=== PATIENT | female | born 1930 | race Caucasian/White ===

== ENCOUNTER → 2016-07-01 | Outpatient (CLI) | payer BC ==
[~2016-07-01] MED LIST: ACET-1256 PO; ALEN5TAB2 PO; ATOR-54 PO; CHOL1TAB5 PO; CHOL400T PO; FERR1TAB13 PO; FERR325T51 PO; FLV1 PO; HYDR0.5T PO; HYDR12.56 PO; LEVO25TA5 PO; LEVO88TA3 PO; METO100T44 PO; METO25TA3 PO; MULT-190 PO; MULT-506 PO; SYN88 PO; TYL325X PO; WARF2.5T8 PO; WARF5TAB7 PO
[2016-07-01 12:24] LABS: BASO % 0.2 %; BASO ABS # 0.01 K/uL (0-0.2); COMPLETE YES; EOS % 2.2 %; HEMATOCRIT 35.3 % (37-47); IG% 0.2 %; LYMPH % 14.4 %; LYMPH ABS # 0.84 K/uL (1.2-3.4); MEAN CELL VOLUME 88.5 fL (80-100); MEAN CORPUSCULAR HEMOGLOBIN 28.8 pg (25-34); MEAN CORPUSCULAR HGB CONC 32.6 g/dl (32-36); MEAN PLATELET VOLUME 10.2 fL (7.4-10.4); MONO % 8.6 %; NEUT % 74.4 %; PLATELET COUNT 226 K/uL (130-400); RED BLOOD COUNT 3.99 M/uL (4.2-5.4); WHITE BLOOD COUNT 5.83 K/uL (4.8-10.8)
== END | disposition home or self-care (01) ==
LOC: C.LAB1850 09:21
PROVIDERS: ATTEND Internal Medicine Rheumatology
DX: M85.80 Other specified disorders of bone density and structure, unspecified site (principal); M06.9 Rheumatoid arthritis, unspecified; M32.9 Systemic lupus erythematosus, unspecified; E55.9 Vitamin D deficiency, unspecified; Z79.899 Other long term (current) drug therapy; Z51.81 Encounter for therapeutic drug level monitoring; Z79.01 Long term (current) use of anticoagulants; I87.1 Compression of vein

== ENCOUNTER 2016-11-11 09:44 | Emergency (ER) | payer BC ==
[~2016-11-11] VITALS: Ht 160 cm; Wt 60.0 kg
[~2016-11-11 09:44] MED LIST changes: -CHOL400T PO; -FERR1TAB13 PO; -LEVO25TA5 PO; -LEVO88TA3 PO; -METO100T44 PO; -TYL325X PO
[2016-11-11 09:46] VITALS: TEMP 36.6; Ht 160 cm; Wt 60.0 kg
--- NOTE | 2016-11-11 10:15 | EMERGENCY ROOM VISIT NOTE ---
History Report prepared by Alanna: Fatou Salgado Under the Supervision of: Dr. Rodney Fischer M.D. First contact with patient: 10:04 Chief Complaint: FALL Stated Complaint: GROIN PROBLEM,CANT BEAR WEIGHT ON L KNEE History of Present Illness The patient is a 86 year old female who presents to the Emergency Room with complaints of a fall that occurred 3 days again. The patient reports that she has not been able to walk since and that she hit her head. She states that she is on Coumadin because she has a pacemaker.The patient also has a history of a hip replacement 2 years ago. Source of History: patient Onset: 3 days ago Position: other (global) Quality: other (fall) Timing: resolved Note: additional symptoms: unable to walk; hit head during fall Review of Systems See HPI for pertinent positives & negatives. A total of 10 systems reviewed and were otherwise negative. Past Medical & Surgical Medical Problems: (1) Dementia (2) Displaced intertrochanteric fracture of left femur (3) H/O cataract removal with insertion of prosthetic lens (4) Lupus (5) Myocardial infarct Family History FH: colon cancer FH: glaucoma FH: prostate cancer FH: renal failure Social History Smoking Status: Never Smoker Alcohol Use: occasionally Marital Status: Occupation Status: employed Current/Historical Medications Scheduled Alendronate Sodium (Fosamax), 70 MG PO WK Atorvastatin (Lipitor), 20 MG PO DAILY Cholecalciferol (Vitamin D), 5,000 UNITS PO DAILY Ferrous Sulfate (Kp Ferrous Sulfate), 1 TAB PO DAILY Hydrochlorothiazide (Hctz), 12.5 MG PO DAILY Levothyroxine Sodium (Levothyroxine Sodium), 1 TAB PO DAILY Metoprolol Succinate (Toprol Xl), 25 MG PO DAILY Multivitamin (Multivitamin), 1 TAB PO DAILY Ocuvite Preservision (Ocuvite Preservision), 1 TAB PO BID Warfarin Sod (Jantoven), 5 MG PO [id number] Warfarin Sod (Jantoven), 2.5 MG PO WK Scheduled PRN Acetaminophen (Tylenol), 500 MG PO Q4 PRN for Headache or Pain Allergies Coded Allergies: Terbinafine (Verified Allergy, Unknown, 03/23/15) Physical Exam Vital Signs Date Time Temp Pulse Resp B/P (MAP) Pulse Ox O2 Delivery O2 Flow Rate FiO2 8/16/17 16:42 75 18 155/85 96 11/11/16 14:15 74 16 148/74 11/11/16 13:30 76 16 95 Room Air 11/11/16 12:35 72 11/11/16 12:13 73 16 170/106 97 Room Air 11/11/16 09:46 36.6 75 16 125/78 98 Room Air Physical Exam GENERAL: Patient is a healthy-appearing well-nourished female. Confused. HEAD: Normocephalic atraumatic EYES: Ocular movements intact pupils equal and react to light OROPHARYNX mucous membranes are moist no exudates present no erythema or edema present NECK: Supple no nuchal rigidity CHEST: Good equal expansion LUNGS: Clear and equal to auscultation CARDIAC: Normal S1 and S2 ABDOMEN: Soft nontender no guarding BACK: No CVA tenderness EXTREMITIES: No pain upon palpation normal muscle strength in all groups no clubbing cyanosis or edema. 4/5 strength on right leg and 4/5 strength on left leg. NEURO: Patient is following commands and answering questions appropriately. Alert and oriented x3 Cranial Nerves 2-12 grossly intact Medical Decision & Procedures ER Provider Diagnostic Interpretation: X-ray results as stated below per interpretation by me and the radiologist: PELVIS 1 OR 2 VIEW ROUTINE CLINICAL HISTORY: 86 years-old Female presenting with fall on Wednesday, left hip pain. TECHNIQUE: Single frontal view of the pelvis was obtained. COMPARISON: 03/23/2015. FINDINGS: Postsurgical changes of dynamic screw and intramedullary bharti fixation of the left femoral neck and proximal metadiaphysis across the comminuted, displaced proximal left femoral intertrochanteric/subtrochanteric fracture. Extensive thick periosteal reaction consistent with healing. No gross evidence of a persistent fracture plane. No hardware complication. Acute nondisplaced fracture of the left superior pubic ramus and likely inferior left pubic ramus better visualized on plain radiographs of the left hip. Arcuate lines intact. No additional pelvic fracture is evident. No malalignment. Added density in the region of the right superior and inferior pubic rami may relate to chronic deformity from prior fracture. Degenerative changes of the lower lumbar spine. Pelvic phleboliths. Moderate stool burden in the colon. IMPRESSION: 1. Acute nondisplaced fracture of the left superior pubic ramus and likely left inferior pubic ramus. No additional pelvic fracture is evident. 2. Chronic deformities from prior fractures of the left femur and likely right superior and inferior pubic rami. Electronically signed by: Eleazar Vela M.D. 11/11/2016 11:01 AM Dictated Date/Time: 11/11/2016 10:56 AM LEFT FEMUR 3 VIEWS CLINICAL HISTORY: Left leg pain. Fall several days ago. FINDINGS: AP, frog-leg, and crosstable lateral views of left femur are compared to study dated 03/23/2015. The skeletal structures are osteopenic. There is an acute-appearing fracture of the left pubic ring. No acute femoral fracture is seen. There is chronic posttraumatic deformity of the intertrochanteric left femur with intertrochanteric and intramedullary nails in place. Bony overgrowth is identified around the chronically avulsed lesser trochanter. The orthopedic hardware appears intact. A single cortical lag screw transfixes the distal aspect of the intramedullary nail. Mild arthritic change is seen in the hip. Arthritic change and chondrocalcinosis is present in the knee. The soft tissues of the thigh are normal as visualized. Foci of atherosclerotic calcification are present in the femoral and popliteal arteries. Phleboliths are observed in the left pelvis. IMPRESSION: 1. There is an acute appearing left pubic ring fracture. 2. No acute fracture is seen involving the left femur. 3. Osteopenia with chronic post traumatic, postoperative, and degenerative changes as above. Electronically signed by: Perico Rooney M.D. 11/11/2016 10:56 AM Dictated Date/Time: 11/11/2016 10:52 AM CHEST ONE VIEW PORTABLE CLINICAL HISTORY: Cough. Back pain. COMPARISON STUDY: 03/26/2016 FINDINGS: The heart remains mildly enlarged. There is a left subclavian dual-chamber central venous pacemaker. Mild pulmonary venous hypertension is suspected. There is no overt edema. There is no focal pulmonary consolidation. There are no pleural effusions.[ IMPRESSION: Cardiomegaly with suspected mild pulmonary venous hypertension. No evidence of focal pulmonary consolidation. Electronically signed by: Justen Monreal M.D. 11/11/2016 10:52 AM Dictated Date/Time: 11/11/2016 10:51 AM Radiology results as stated below per my review and radiologist interpretation: CT SCAN OF THE BRAIN WITHOUT IV CONTRAST CLINICAL HISTORY: Headache. COMPARISON STUDY: CT of the brain dated 03/23/2015. TECHNIQUE: Unenhanced axial CT scan of the brain is performed from the vertex to the skull base. CT DOSE: 537.48 mGy.cm FINDINGS: Brain parenchyma: There are age-related involutional changes noting [id number] patchy subcortical and periventricular microangiopathic change. There is no hemorrhage, mass effect, or evidence of acute territorial ischemia by CT criteria. Spencer-white matter is preserved. No extra-axial fluid collection is seen. Ventricles, sulci, cisterns: Prominent secondary to involutional change. Intracranial vasculature: There is atherosclerotic calcification of the cavernous carotid arteries. Calvarium: Unremarkable. Sinuses and mastoids: The visualized paranasal sinuses are clear. The mastoid air cells are well pneumatized. Orbits: The bony orbits are grossly intact. IMPRESSION: There is no hemorrhage, mass effect, or evidence of acute territorial ischemia by CT criteria. Electronically signed by: Perico Rooney M.D. 11/11/2016 11:49 AM Dictated Date/Time: 11/11/2016 11:[address] PELVIS NO IV/ORAL CONT (CT) CT DOSE: 462.67 mGy.cm CLINICAL HISTORY: Pelvic pain status post trauma. Difficulty walking. TECHNIQUE: Helical images were acquired in transverse plane. Sagittal and coronal reformatted imaging was performed. A dose lowering technique was utilized adhering to the principles of ALARA. COMPARISON STUDY: February 2015 FINDINGS: There is an old internally fixated intertrochanteric left hip fracture. There is acute nondisplaced fracture the left inferior pubic ramus. There is associated nondisplaced fracture through the left symphysis. There is a healing right ischio pubic ring fracture. There are healing bilateral sacral insufficiency fractures. No acute fractures the right hip are visualized. Degenerative changes are present within the lower lumbar spine. IMPRESSION: 1. Acute left ischio pubic ring fracture 2. Old healing right ischio pubic ring fracture 3. Healing bilateral sacral insufficiency fractures 4. Old internally fixated intertrochanteric left hip fracture Electronically signed by: Justen Monreal M.D. 11/11/2016 11:50 AM Dictated Date/Time: 11/11/2016 11:45 AM Laboratory Results 11/11/16 11:15 Red Blood Count 4.05, Mean Corpuscular Volume 88.6, Mean Corpuscular Hemoglobin 28.9, Mean Corpuscular Hemoglobin Concent 32.6, Mean Platelet Volume 9.7, Neutrophils (%) (Auto) 72.1, Lymphocytes (%) (Auto) 12.1, Monocytes (%) (Auto) 12.5, Eosinophils (%) (Auto) 2.7, Basophils (%) (Auto) 0.3, Neutrophils # (Auto ) 5.55, Lymphocytes # (Auto) 0.93, Monocytes # (Auto) 0.96, Eosinophils # (Auto ) 0.21, Basophils # (Auto) 0.02 11/11/16 11:15 Test 11/11/16 11:10 11/11/16 11:15 Urine Color YELLOW Urine Appearance CLEAR (CLEAR) Urine pH 7.5 (4.5-7.5) Urine Specific [place] 1.013 (1.000-1.030) Urine Protein NEG (NEG) Urine Glucose (UA) NEG (NEG) Urine Ketones NEG (NEG) Urine Occult Blood NEG (NEG) Urine Nitrite NEG (NEG) Urine Bilirubin NEG (NEG) Urine Urobilinogen NEG (NEG) Urine Leukocyte Esterase NEG (NEG) White Blood Count 7.69 K/uL (4.8-10.8) Red Blood Count 4.05 M/uL (4.2-5.4) Hemoglobin 11.7 g/dL (12.0-16.0) Hematocrit 35.9 % (37-47) Mean Corpuscular Volume 88.6 fL (80-100) Mean Corpuscular Hemoglobin 28.9 pg (25-34) Mean Corpuscular Hemoglobin Concent 32.6 g/dl (32-36) Platelet Count 195 K/uL (130-400) Mean Platelet Volume 9.7 fL (7.4-10.4) Neutrophils (%) (Auto) 72.1 % Lymphocytes (%) (Auto) 12.1 % Monocytes (%) (Auto) 12.5 % Eosinophils (%) (Auto) 2.7 % Basophils (%) (Auto) 0.3 % Neutrophils # (Auto) 5.55 K/uL (1.4-6.5) Lymphocytes # (Auto) 0.93 K/uL (1.2-3.4) Monocytes # (Auto) 0.96 K/uL (0.11-0.59) Eosinophils # (Auto) 0.21 K/uL (0-0.5) Basophils # (Auto) 0.02 K/uL (0-0.2) RDW Standard Deviation 41.7 fL (36.4-46.3) RDW Coefficient of Variation 12.9 % (11.5-14.5) Immature Granulocyte % (Auto) 0.3 % Immature Granulocyte # (Auto) 0.02 K/uL (0.00-0.02) Prothrombin Time 23.6 SECONDS (9.0-12.0) Prothromb Time International Ratio 2.1 (0.9-1.1) Activated Partial Thromboplast Time 42.3 SECONDS (21.0-31.0) Partial Thromboplastin Ratio 1.6 Anion Gap 4.0 mmol/L (3-11) Est Creatinine Clear Calc Drug Dose 23.0 ml/min Estimated GFR () 38.8 Estimated GFR (Non- 33.5 BUN/Creatinine Ratio 19.2 (10-20) Calcium Level 8.6 mg/dl (8.5-10.1) Total Creatine Kinase 95 U/L (26-192) Creatine Kinase MB 1.1 ng/ml (0.5-3.6) Creatine Kinase MB Ratio 1.2 (0-3.0) Troponin I 0.023 ng/ml (0-0.045) Labs reviewed by ED physician. ECG Indication: weakness Rate (beats per minute): 69 Rhythm: other (paced rhythm) Findings: no acute ischemic change, no ectopy ED Course 1010: Past medical records reviewed. The patient was evaluated in room B3. A complete history and physical examination was performed. 1423: Dr. Longoria instructed the patient as follows: weight-bearing as tolerated , use walker. Medical Decision Differential diagnosis: Etiologies such as fracture, dislocation, intra-abdominal, pneumothorax, intrathoracic , intracranial, neurologic, as well as other traumatic pathologies were entertained. This is an 86-year-old female who presents emergency department complaining of being unable to walk since a fall at home. The patient hit her head and is on Coumadin and seems pleasantly confused with a GCS of 14. For this reason the patient was sent for CAT scan of the head which did not show any acute process. The patient has a history of hip replacement. She was sent for pelvic x-rays as well as femur x-ray. Because the patient is on Coumadin and she appears to have an issue pubic fracture she was sent for CAT scan of the pelvis. This confirmed issue pubic fracture. I did discuss the case with orthopedics who recommended weightbearing as tolerated as well as a walker. Because they feel that this patient is a poor candidate to go home and I also feel she is a high fall risk I recommended that she be placed in a rehabilitation Hospital. was also in agreement with this. I did discuss this with case management and the patient had physical therapy as well as occupational therapy evaluations in the emergency department. Medication Reconcilliation Current Medication List: was personally reviewed by me Blood Pressure Screening Patient's blood pressure: Normal blood pressure Consults Time Called: 1410 Consulting Physician: Dr. Longoria-Orthopedics Returned Call: [phone] I discussed the patient's case with Dr. Longoria, he recommends the following: weight-bearing as tolerated, use walker. Impression Primary Impression: Fall Additional Impression: Pelvic fracture Scribe Attestation The scribe's documentation has been prepared under my direction and personally reviewed by me in its entirety. I confirm that the note above accurately reflects all work, treatment, procedures, and medical decision making performed by me. Departure Information Dispostion Rehab Inpatient Facility Referrals Derick Cervantes M.D. (PCP) Patient Instructions My [facility] Problem Qualifiers Primary Impression: Fall Encounter type: initial encounter Qualified Codes: W19.XXXA - Unspecified fall, initial encounter Additional Impression: Pelvic fracture Encounter type: initial encounter Pelvic bone location: ischium Fracture type: closed Fracture morphology: unspecified fracture morphology Fracture alignment: nondisplaced Laterality: left Qualified Codes: S32.602A - Unspecified fracture of left ischium, initial encounter for closed fracture
--- NOTE | 2016-11-11 10:53 | DIAGNOSTIC IMAGING REPORT ---
CHEST ONE VIEW PORTABLE CLINICAL HISTORY: Cough. Back pain. COMPARISON STUDY: 03/26/2016 FINDINGS: The heart remains mildly enlarged. There is a left subclavian dual-chamber central venous pacemaker. Mild pulmonary venous hypertension is suspected. There is no overt edema. There is no focal pulmonary consolidation. There are no pleural effusions.[ IMPRESSION: Cardiomegaly with suspected mild pulmonary venous hypertension. No evidence of focal pulmonary consolidation. Electronically signed by: Justen Monreal M.D. 11/11/2016 10:52 AM Dictated Date/Time: 11/11/2016 10:51 AM
--- NOTE | 2016-11-11 10:57 | DIAGNOSTIC IMAGING REPORT ---
LEFT FEMUR 3 VIEWS CLINICAL HISTORY: Left leg pain. Fall several days ago. FINDINGS: AP, frog-leg, and crosstable lateral views of left femur are compared to study dated 03/23/2015. The skeletal structures are osteopenic. There is an acute-appearing fracture of the left pubic ring. No acute femoral fracture is seen. There is chronic posttraumatic deformity of the intertrochanteric left femur with intertrochanteric and intramedullary nails in place. Bony overgrowth is identified around the chronically avulsed lesser trochanter. The orthopedic hardware appears intact. A single cortical lag screw transfixes the distal aspect of the intramedullary nail. Mild arthritic change is seen in the hip. Arthritic change and chondrocalcinosis is present in the knee. The soft tissues of the thigh are normal as visualized. Foci of atherosclerotic calcification are present in the femoral and popliteal arteries. Phleboliths are observed in the left pelvis. IMPRESSION: 1. There is an acute appearing left pubic ring fracture. 2. No acute fracture is seen involving the left femur. 3. Osteopenia with chronic post traumatic, postoperative, and degenerative changes as above. Electronically signed by: Perico Rooney M.D. 11/11/2016 10:56 AM Dictated Date/Time: 11/11/2016 10:52 AM
[2016-11-11] MEDS ORDERED: CHOL400T PO (11:00)
[2016-11-11] MEDS ORDERED: LEVO25TA5 PO (11:00)
[2016-11-11] MEDS ORDERED: FERR1TAB13 PO (11:00)
--- NOTE | 2016-11-11 11:03 | DIAGNOSTIC IMAGING REPORT ---
PELVIS 1 OR 2 VIEW ROUTINE CLINICAL HISTORY: 86 years-old Female presenting with fall on Wednesday, left hip pain. TECHNIQUE: Single frontal view of the pelvis was obtained. COMPARISON: 03/23/2015. FINDINGS: Postsurgical changes of dynamic screw and intramedullary bharti fixation of the left femoral neck and proximal metadiaphysis across the comminuted, displaced proximal left femoral intertrochanteric/subtrochanteric fracture. Extensive thick periosteal reaction consistent with healing. No gross evidence of a persistent fracture plane. No hardware complication. Acute nondisplaced fracture of the left superior pubic ramus and likely inferior left pubic ramus better visualized on plain radiographs of the left hip. Arcuate lines intact. No additional pelvic fracture is evident. No malalignment. Added density in the region of the right superior and inferior pubic rami may relate to chronic deformity from prior fracture. Degenerative changes of the lower lumbar spine. Pelvic phleboliths. Moderate stool burden in the colon. IMPRESSION: 1. Acute nondisplaced fracture of the left superior pubic ramus and likely left inferior pubic ramus. No additional pelvic fracture is evident. 2. Chronic deformities from prior fractures of the left femur and likely right superior and inferior pubic rami. Electronically signed by: Eleazar Vela M.D. 11/11/2016 11:01 AM Dictated Date/Time: 11/11/2016 10:56 AM
[2016-11-11 11:28] LABS: BASO % 0.3 %; BASO ABS # 0.02 K/uL (0-0.2); COMPLETE YES; EOS % 2.7 %; HEMATOCRIT 35.9 % (37-47); IG% 0.3 %; LYMPH % 12.1 %; LYMPH ABS # 0.93 K/uL (1.2-3.4); MEAN CELL VOLUME 88.6 fL (80-100); MEAN CORPUSCULAR HEMOGLOBIN 28.9 pg (25-34); MEAN CORPUSCULAR HGB CONC 32.6 g/dl (32-36); MEAN PLATELET VOLUME 9.7 fL (7.4-10.4); MONO % 12.5 %; NEUT % 72.1 %; PLATELET COUNT 195 K/uL (130-400); RED BLOOD COUNT 4.05 M/uL (4.2-5.4); WHITE BLOOD COUNT 7.69 K/uL (4.8-10.8)
[2016-11-11 11:38] LABS: INR 2.1 (0.9-1.1); PARTIAL THROMBOPLASTIN RATIO 1.6; PROTHROMBIN TIME (PATIENT) 23.6 SECONDS (9.0-12.0)
[2016-11-11 11:43] LABS: URINE APPEARANCE CLEAR (CLEAR); URINE BILIRUBIN NEG (NEG); URINE COLOR YELLOW; URINE NITRITE NEG (NEG); URINE PH 7.5 (4.5-7.5); URINE SPECIFIC GRAVITY 1.013 (1.000-1.030); UROBILINOGEN NEG (NEG); ZZURINE CULT IF INDIC CATH NO
[2016-11-11 11:45] LABS: BUN/CREATININE RATIO 19.2 (10-20); CALCIUM 8.6 mg/dl (8.5-10.1); CREATININE 1.4 mg/dl (0.60-1.20)
[2016-11-11 11:46] LABS: MANUAL MICROSCOPIC REQUIRED? NO; REVIEW REQ? NO
[2016-11-11 11:50] LABS: CKMB/CK RATIO 1.2 (0-3.0)
--- NOTE | 2016-11-11 11:50 | DIAGNOSTIC IMAGING REPORT ---
CT SCAN OF THE BRAIN WITHOUT IV CONTRAST CLINICAL HISTORY: Headache. COMPARISON STUDY: CT of the brain dated 03/23/2015. TECHNIQUE: Unenhanced axial CT scan of the brain is performed from the vertex to the skull base. CT DOSE: 537.48 mGy.cm FINDINGS: Brain parenchyma: There are age-related involutional changes noting [id number] patchy subcortical and periventricular microangiopathic change. There is no hemorrhage, mass effect, or evidence of acute territorial ischemia by CT criteria. Spencer-white matter is preserved. No extra-axial fluid collection is seen. Ventricles, sulci, cisterns: Prominent secondary to involutional change. Intracranial vasculature: There is atherosclerotic calcification of the cavernous carotid arteries. Calvarium: Unremarkable. Sinuses and mastoids: The visualized paranasal sinuses are clear. The mastoid air cells are well pneumatized. Orbits: The bony orbits are grossly intact. IMPRESSION: There is no hemorrhage, mass effect, or evidence of acute territorial ischemia by CT criteria. Electronically signed by: Perico Rooney M.D. 11/11/2016 11:49 AM Dictated Date/Time: 11/11/2016 11:45 AM
--- NOTE | 2016-11-11 11:52 | DIAGNOSTIC IMAGING REPORT ---
CT PELVIS NO IV/ORAL CONT (CT) CT DOSE: 462.67 mGy.cm CLINICAL HISTORY: Pelvic pain status post trauma. Difficulty walking. TECHNIQUE: Helical images were acquired in transverse plane. Sagittal and coronal reformatted imaging was performed. A dose lowering technique was utilized adhering to the principles of ALARA. COMPARISON STUDY: February 2015 FINDINGS: There is an old internally fixated intertrochanteric left hip fracture. There is acute nondisplaced fracture the left inferior pubic ramus. There is associated nondisplaced fracture through the left symphysis. There is a healing right ischio pubic ring fracture. There are healing bilateral sacral insufficiency fractures. No acute fractures the right hip are visualized. Degenerative changes are present within the lower lumbar spine. IMPRESSION: 1. Acute left ischio pubic ring fracture 2. Old healing right ischio pubic ring fracture 3. Healing bilateral sacral insufficiency fractures 4. Old internally fixated intertrochanteric left hip fracture Electronically signed by: Justen Monreal M.D. 11/11/2016 11:50 AM Dictated Date/Time: 11/11/2016 11:45 AM
--- NOTE | 2016-11-11 15:29 | ORTHOPEDIC CONSULTATION ---
DATE OF CONSULTATION: 11/11/2016 DATE OF CONSULTATION: 11/11/2016 HISTORY OF PRESENT ILLNESS: This 86-year-old female who sustained a fall at home on Wednesday and had difficulty ambulating since that time. She was seen in the Coumadin clinic today. She is on Coumadin due to her cardiac dysrhythmia and complained of groin and pelvis pain, she complained of an inability to ambulate without significant pain and difficulty and she was referred to the ER. The ER physician examined the patient and performed radiographs and CT scans and discovered a left pubic ring fracture and requested a consultation for orthopedics. PAST MEDICAL HISTORY: Significant for dementia, ORIF intertrochanteric fracture of the left femur, history of cataract removal with insertion of prosthetic lens, lupus, myocardial infarct and previous pacemaker insertion. ALLERGIES: TERBINAFINE UNKNOWN ALLERGY. MEDICATIONS: Please see the medication list provided including warfarin sodium 5 mg p.o. 6 times per week and warfarin sodium 2.5 mg p.o. weekly. SOCIAL HISTORY: Denies tobacco, alcohol or drug use. She is . She is retired. PHYSICAL EXAMINATION: GENERAL: This is a pleasant 86-year-old female, sitting supine in the Emergency Department bed. She is present with her , who is at her bedside. The patient is awake, alert and oriented x3. Speech clear and fluent. Affect is appropriate. Answers questions appropriately. EXTREMITIES: Examination of the pelvis and left anterior pubis demonstrates tenderness to palpation over the left anterior pubic symphysis and the left groin. She has discomfort with active and passive range of motion of the left lower extremity radiating from the left pubis. Unable to stand or ambulate due to discomfort. Dorsalis pedis and posterior tibial pulses are 2/4. Strength and range of motion limited due to pain and guarding. Radiographs and CT scans were examined and reviewed, both report and images noting a closed left symphysis pubis fracture and a left inferior pubic ramus fracture, both acute. Also, evidence of prior ORIF intertrochanteric hip fracture and varying degrees of degenerative arthritis throughout the sacrum and pelvis with evidence of prior healed fractures within the pelvis. Osteopenia is evident. IMPRESSIONS: 1. Left symphysis pubis fracture. 2. Left inferior pubic ramus fracture status post mechanical fall. RECOMMENDATIONS: Weightbearing as tolerated with a walker and assist x1 and follow up in our office for radiographic surveillance in approximately 5-6 weeks. Thank you for the opportunity to consult in the care of this patient. MILAGROS
--- NOTE | 2016-11-11 16:27 | EMERGENCY ROOM VISIT NOTE ---
ED Visit Note This patient was signed out to me awaiting for [facility] to prove or disprove the patient's admission there. While the patient was here, the was becoming upset that it was taking so long. He states that he would like to take his home and he can be contacted by [facility] at home. He feels comfortable taking her home. He states that he has been taking care of her for the past several days in her current condition. He wants to be discharged at this time with his . He understands that if [facility] cannot accept her, he will have to arrange for other means to get her rehabilitation.
[2016-11-11 16:42] VITALS: BP 155/85; PULSE 75; O2SAT 96
== END 2016-11-11 16:44 | disposition home or self-care (01) ==
LOC: C.EDB 09:45
DX: S32.602A Unspecified fracture of left ischium, initial encounter for closed fracture (principal); W19.XXXA Unspecified fall, initial encounter; M85.80 Other specified disorders of bone density and structure, unspecified site; R51 Headache; R05 Cough; M54.9 Dorsalgia, unspecified; I51.7 Cardiomegaly; F03.90 Unspecified dementia, unspecified severity, without behavioral disturbance, psychotic disturbance, mood disturbance, and anxiety; I25.2 Old myocardial infarction; M32.9 Systemic lupus erythematosus, unspecified; Z87.81 Personal history of (healed) traumatic fracture; Z95.0 Presence of cardiac pacemaker; Z96.642 Presence of left artificial hip joint; Z98.49 Cataract extraction status, unspecified eye; Z79.01 Long term (current) use of anticoagulants; Z79.899 Other long term (current) drug therapy; Z88.8 Allergy status to other drugs, medicaments and biological substances; Z80.0 Family history of malignant neoplasm of digestive organs; Z84.1 Family history of disorders of kidney and ureter; Z80.42 Family history of malignant neoplasm of prostate; Z83.511 Family history of glaucoma; Z51.81 Encounter for therapeutic drug level monitoring; I87.1 Compression of vein

== ENCOUNTER → 2016-12-07 | Outpatient (CLI) | payer BC ==
[~2016-12-07] MED LIST changes: -CHOL1TAB5 PO; +CHOL400T PO; +FERR1TAB13 PO; -FERR325T51 PO; -FLV1 PO; -HYDR0.5T PO; +LEVO25TA5 PO; -SYN88 PO
[2016-12-07 10:46] LABS: BASO % 0.3 %; BASO ABS # 0.02 K/uL (0-0.2); COMPLETE YES; EOS % 2.3 %; HEMATOCRIT 36.1 % (37-47); IG% 0.1 %; LYMPH ABS # 0.77 K/uL (1.2-3.4); MEAN CELL VOLUME 89.4 fL (80-100); MEAN CORPUSCULAR HEMOGLOBIN 28.5 pg (25-34); MEAN CORPUSCULAR HGB CONC 31.9 g/dl (32-36); MEAN PLATELET VOLUME 9.9 fL (7.4-10.4); MONO % 10.8 %; NEUT % 75.5 %; PLATELET COUNT 259 K/uL (130-400); RED BLOOD COUNT 4.04 M/uL (4.2-5.4); WHITE BLOOD COUNT 7.02 K/uL (4.8-10.8)
== END | disposition home or self-care (01) ==
LOC: C.LAB1850 08:56
PROVIDERS: ATTEND Internal Medicine Rheumatology
DX: M06.9 Rheumatoid arthritis, unspecified (principal); M32.9 Systemic lupus erythematosus, unspecified; Z51.81 Encounter for therapeutic drug level monitoring; Z79.899 Other long term (current) drug therapy; E55.9 Vitamin D deficiency, unspecified; N25.81 Secondary hyperparathyroidism of renal origin; M35.1 Other overlap syndromes; M81.0 Age-related osteoporosis without current pathological fracture; Z12.31 Encounter for screening mammogram for malignant neoplasm of breast

== ENCOUNTER → 2016-12-07 | Outpatient (CLI) | payer BC ==
--- NOTE | 2016-12-07 15:51 | MAMMOGRAPHY REPORT ---
BILATERAL DIGITAL SCREENING MAMMOGRAM WITH CAD: 12/07/2016 CLINICAL HISTORY: Routine screening. Patient has no complaints. TECHNIQUE: Bilateral CC, MLO and repeat right CC views were performed. Current study was also evalua zack with a Computer Aided Detection (CAD) system. COMPARISON: Comparison is made to exams dated: 11/14/2014 mammogram, 05/25/2014 mammogram, 11/21/2013 m ammogram, 11/13/2013 mammogram, 11/10/2012 mammogram, and 11/10/2011 mammogram - [facility] enter. BREAST COMPOSITION: There are scattered areas of fibroglandular density in both breasts. FINDINGS: A pacemaker projects over the far superior left breast and pectoralis muscle on the MLO vie w. There is stable focal asymmetry in the upper outer posterior right breast, which appears similar dating back to at least 10/20/2007, therefore likely benign. There are scattered benign round calcif ications in both breasts. No suspicious mass, architectural distortion or cluster of microcalcificati ons is seen. IMPRESSION: ACR BI-RADS CATEGORY 1: NEGATIVE There is no mammographic evidence of malignancy. A 1 year screening mammogram is recommended. The pa tient will receive written notification of the results. Approximately 10% of breast cancers are not detected with mammography. A negative mammographic report should not delay biopsy if a clinically suggestive mass is present. Namrata Blue M.D. ay/:12/07/2016 15:10:41 Primer Charging Tool Setter: Letitia RAHMAN(Zulma)(Carlos)(BD), [facility] letter sent: Normal 1/2 BI-RADS Code: ACR BI-RADS Category 1: Negative
== END | disposition home or self-care (01) ==
LOC: C.MAMM 08:25
PROVIDERS: ATTEND Family Medicine
DX: Z12.31 Encounter for screening mammogram for malignant neoplasm of breast (principal)

== ENCOUNTER → 2017-01-14 | Outpatient (CLI) | payer BC | END | disposition home or self-care (01) | LOC: C.MAMM 09:40 | PROVIDERS: ATTEND Internal Medicine Rheumatology | DX: M80.00XA Age-related osteoporosis with current pathological fracture, unspecified site, initial encounter for fracture (principal); M85.832 Other specified disorders of bone density and structure, left forearm ==

== ENCOUNTER → 2017-03-11 | Outpatient (CLI) | payer BC ==
[~2017-03-11] MED LIST changes: -LEVO25TA5 PO; +LEVO88TA3 PO; +LVQ500 PO
--- NOTE | 2017-03-11 12:51 | DIAGNOSTIC IMAGING REPORT ---
CHEST 2 VIEWS ROUTINE CLINICAL HISTORY: 86 years-old Female presenting with R06.02 SOB R06.2 WHEEZING. TECHNIQUE: PA and lateral views of the chest were obtained. COMPARISON: 11/11/2016. FINDINGS: Left subclavian pacer with leads to the right atrium and right ventricular apex. Atherosclerosis of aortic arch. Cardiac silhouette remains enlarged. Pulmonary vascular prominence. Prominence of the right hilum, possibly vascular. Minimal bandlike opacity at the right lung base, unchanged. Trace bilateral pleural effusions suggested. Deformity of several posterior right ribs indicative of prior fractures. Degenerative changes of the thoracic spine. Deformities of several thoracic vertebral bodies consistent with compression fractures, age indeterminate. Upper abdomen normal. IMPRESSION: 1. Cardiomegaly with pulmonary vascular prominence concerning for volume overload. No katelynn pulmonary edema. 2. Prominence of the right hilum may be vascular in etiology, although underlying lymphadenopathy or a mass lesion is difficult to exclude. If there is clinical concern, CT to be obtained. 3. Age-indeterminate compression fractures of several thoracic vertebral bodies. Electronically signed by: Eleazar Vela M.D. 03/11/2017 12:49 PM Dictated Date/Time: 03/11/2017 12:46 PM
== END | disposition home or self-care (01) ==
LOC: C.RAD1850 12:35
PROVIDERS: ATTEND Family Medicine
DX: R06.02 Shortness of breath (principal); R06.2 Wheezing

== ENCOUNTER 2017-03-12 11:27 | Observation (INO) | payer BC, OTHER ==
[~2017-03-12] VITALS: Ht 165.1 cm; Wt 58.3 kg
[~2017-03-12 11:27] MED LIST changes: -LVQ500 PO
[2017-03-12 13:16] VITALS: BP 132/77; PULSE 84; TEMP 36.7; O2SAT 96; Ht 165.1 cm; Wt 58.3 kg
[2017-03-12] MEDS ORDERED: ONDANSETRON INJ 2 MG/ML 2 ML VIAL IV PRN (13:45)
[2017-03-12] MEDS ORDERED: ACETAMINOPHEN 325 MG TAB PO PRN (13:45)
[2017-03-12] MEDS ORDERED: POLYETHYLENE (MIRALAX) 17 GM PACK PO PRN (13:45)
[2017-03-12] MEDS ORDERED: ALUMINUM/MAGNESIUM/SIMETH (MAALOX MAX) 30 ML UDC PO PRN (13:45)
[2017-03-12] MEDS ORDERED: MAGNESIUM HYDROXIDE SUSP 30 ML UDC PO PRN (13:45)
[2017-03-12] MEDS ORDERED: IV FLUIDS COMPLETED PRN (14:15)
[2017-03-12 14:29] LABS: BASO % 0.1 %; BASO ABS # 0.01 K/uL (0-0.2); COMPLETE YES; EOS % 0.2 %; HEMATOCRIT 32.8 % (37-47); IG% 0.3 %; LYMPH ABS # 0.32 K/uL (1.2-3.4); MEAN CELL VOLUME 89.9 fL (80-100); MEAN CORPUSCULAR HEMOGLOBIN 29.6 pg (25-34); MEAN CORPUSCULAR HGB CONC 32.9 g/dl (32-36); MONO % 6.4 %; PLATELET COUNT 167 K/uL (130-400); RED BLOOD COUNT 3.65 M/uL (4.2-5.4); WHITE BLOOD COUNT 10.68 K/uL (4.8-10.8)
[2017-03-12 14:44] LABS: INR 2.2 (0.9-1.1); PROTHROMBIN TIME (PATIENT) 22.9 SECONDS (9.0-12.0)
[2017-03-12 14:48] VITALS: BP 136/71; PULSE 64; TEMP 37; O2SAT 97
--- NOTE | 2017-03-12 14:49 | DIAGNOSTIC IMAGING REPORT ---
CHEST ONE VIEW PORTABLE CLINICAL HISTORY: ? pneumonia pneumonitis COMPARISON STUDY: 03/11/2017 FINDINGS: Potential developing parenchymal infiltrate left base. Lungs otherwise appear clear. Findings of mild stable cardiomegaly. Right hilar fullness diminished possibly secondary to rotational factors on the initial film. Permanent bipolar cardiac pacemaker. IMPRESSION: Potential developing parenchymal infiltrate left base. Improved right hilar prominence. The above report was generated using voice recognition software. It may contain grammatical, syntax or spelling errors. Electronically signed by: Sheldon Simons M.D. 03/12/2017 2:48 PM Dictated Date/Time: 03/12/2017 2:47 PM
[2017-03-12] MEDS ORDERED: LEVOFLOXACIN 750 MG TAB PO ONE (14:54)
[2017-03-12 14:55] LABS: BUN/CREATININE RATIO 20.3 (10-20); CALCIUM 8.1 mg/dl (8.5-10.1); CREATININE 1.77 mg/dl (0.60-1.20); POTASSIUM 3.3 mmol/L (3.5-5.1)
[2017-03-12 14:57] LABS: ALB/GLOB RATIO 0.8 (0.9-2)
[2017-03-12] MEDS ORDERED: ACETAMINOPHEN 500 MG TAB PO PRN (16:30)
--- NOTE | 2017-03-12 16:30 | ECHOCARDIOGRAM REPORT ---
*NOTICE TO RECEIVING DEMOCRAT AGENCY This information is strictly Confidential and protected under [place] law. [place] law prohibits you from making any further disclosure of this information unless further disclosure is expressly permitted by the written consent of the person to whom it pertains or is authorized by law. A general authorization for the release of medical or other information is not sufficient for this purpose. Hospital accepts no responsibility if the information is made available to any other person, INCLUDING THE PATIENT. Interpretation Summary * Name: TRESA LAO Study Date: 03/12/2017 03:08 PM BP: 136/71 mmHg * Patient Location: [facility]\S\N281\S\2 HR: 64 * : 1930 (M/d/yyy) Gender: Female Height: 65 in * Age: 86 yrs Ethnicity: [place] Weight: 129 lb * Ordering Physician: Jovanny Zaidi * Referring Physician: Derick Kelly * Performed By: Beverly Morales RDCS * * Reason For Study: SOB, CHF * BSA: 1.6 m2 * -- Conclusions -- * Left ventricular systolic function is normal. * No regional wall motion abnormalities noted. * Ejection Fraction = 50-55%. * Grade I diastolic dysfunction, (abnormal relaxation pattern). * There is mild mitral regurgitation. * There is mild to moderate tricuspid regurgitation. Procedure Details * A complete two-dimensional transthoracic echocardiogram was performed (2D, M-mode, Doppler and color flow Doppler). Left Ventricle * The left ventricle is normal in size. * There is normal left ventricular wall thickness. * Ejection Fraction = 50-55%. * Left ventricular systolic function is normal. * No regional wall motion abnormalities noted. Right Ventricle * The right ventricular cavity size is normal (basal dimension <4.2 cm in right ventricular apical 4-chamber view). * There is a pacemaker lead in the right ventricle. * The right ventricular systolic function is normal as assessed by tricuspid annular plane systolic excursion (TAPSE) (normal >1.5 cm). Atria * The left atrium is mildly dilated. * Borderline right atrial enlargement. * No ASD detected; PFO is not assessed. Mitral Valve * The mitral valve is grossly normal. * There is no mitral valve stenosis. * There is mild mitral regurgitation. Tricuspid Valve * The tricuspid valve is not well visualized, but is grossly normal. * There is mild to moderate tricuspid regurgitation. Aortic Valve * The aortic valve is trileaflet. * The aortic valve opens well. * Aortic valve sclerosis mild, without significant aortic valvular stenosis. * Trace aortic regurgitation. Pulmonic Valve * The pulmonary valve is inadequately visualized, but the Doppler data is adequate for interpretation. Great Vessels * The aortic root is normal size. * The pulmonary is not well visualized. Pericardium/Pleural * There is no pericardial effusion. Great Vessels * Normal inferior vena cava size and collapsability with sniff indicates a normal right atrial pressure of 3 mmHg Left Ventricular Diastolic Function * Grade I diastolic dysfunction, (abnormal relaxation pattern). MMode 2D Measurements and Calculations IVSd 0.95 cm LVIDd 5.0 cm LVIDs 3.6 cm LVPWd 1.1 cm IVS/LVPW 0.88 FS 28.3 % EDV(Teich) 120.6 ml ESV(Teich) 55.0 ml EF(Teich) 54.4 % EDV(cubed) 128.2 ml ESV(cubed) 47.3 ml EF(cubed) 63.1 % LV mass(C)d 188.7 grams LV mass(C)dI 114.9 grams/m\S\2 SV(Teich) 65.6 ml SI(Teich) 39.9 ml/m\S\2 SV(cubed) 80.9 ml SI(cubed) 49.3 ml/m\S\2 Ao root diam 2.9 cm Ao root area 6.8 cm\S\2 ACS 1.4 cm LA dimension 3.4 cm asc Aorta Diam 3.0 cm LA/Ao 1.2 LVOT diam 2.0 cm LVOT area 3.1 cm\S\2 LVAd ap4 28.4 cm\S\2 LVLd ap4 7.5 cm EDV(MOD-sp4) 90.0 ml EDV(sp4-el) 91.5 ml LVAs ap4 19.0 cm\S\2 LVLs ap4 6.7 cm ESV(MOD-sp4) 42.9 ml ESV(sp4-el) 46.1 ml EF(MOD-sp4) 52.3 % EF(sp4-el) 49.7 % LVAd ap2 25.8 cm\S\2 LVLd ap2 6.5 cm EDV(MOD-sp2) 85.3 ml EDV(sp2-el) 86.5 ml LVAs ap2 18.2 cm\S\2 LVLs ap2 6.5 cm ESV(MOD-sp2) 41.8 ml ESV(sp2-el) 43.0 ml EF(MOD-sp2) 51.0 % EF(sp2-el) 50.3 % LVLd %diff -14.97 % EDV(MOD-bp) 93.1 ml LVLs %diff -1.98 % ESV(MOD-bp) 42.7 ml EF(MOD-bp) 54.1 % SV(MOD-sp4) 47.1 ml SI(MOD-sp4) 28.7 ml/m\S\2 SV(MOD-sp2) 43.4 ml SI(MOD-sp2) 26.5 ml/m\S\2 SV(MOD-bp) 50.4 ml SI(MOD-bp) 30.7 ml/m\S\2 SV(sp4-el) 45.4 ml SI(sp4-el) 27.7 ml/m\S\2 SV(sp2-el) 43.5 ml SI(sp2-el) 26.5 ml/m\S\2 Doppler Measurements and Calculations MV E max glenis 94.6 cm/sec MV A max glenis 129.5 cm/sec MV E/A 0.73 MV V2 max 150.3 cm/sec MV max PG 9.0 mmHg MV V2 mean 80.9 cm/sec MV mean PG 3.2 mmHg MV V2 VTI 33.9 cm MV P1/2t max glenis 118.1 cm/sec MV P1/2t 51.9 msec MVA(P1/2t) 4.2 cm\S\2 MV dec slope 666.1 cm/sec\S\2 MV dec time 0.15 sec Ao V2 max 152.3 cm/sec Ao max PG 9.3 mmHg Ao max PG (full) 5.8 mmHg GARCÍA(V,A) 1.9 cm\S\2 GARCÍA(V,D) 1.9 cm\S\2 LV V1 max PG 3.5 mmHg LV V1 max 93.6 cm/sec PA V2 max 103.2 cm/sec PA max PG 4.3 mmHg PA acc slope 537.3 cm/sec\S\2 PA acc time 0.11 sec PI max glenis 263.3 cm/sec PI max PG 27.7 mmHg PI dec slope 259.5 cm/sec\S\2 PI P1/2t 297.2 msec TR max glenis 268.5 cm/sec PA pr(Accel) 31.5 mmHg
[2017-03-12 16:32] VITALS: PULSE 80; O2SAT 96
[2017-03-12] MEDS: ALBUT/IPRATROP 3MG/0.5MG NEB 3 ML VIAL INH SCH ×2 (16:32→19:47)
[2017-03-12] MEDS ORDERED: WARFARIN SOD 5 MG TAB PO SCH (17:00)
--- NOTE | 2017-03-12 17:20 | History and Physical ---
History & Physical Date & Time of Service: Mar 12, 2017 at 16:43 Chief Complaint: Pneumonia Primary Care Physician: Derick Cervantes M.D. History of Present Illness Source: patient, spouse Ms. Oviedo is a pleasant 86 year old woman with a past medical history of pacemaker placement (on warfarin) CAD s/p ACS in 2004 with placement of a stent , PAF, hypercholesterolemia, hypothyroidism, lupus who presented to [facility] with a 4 day history of wheezing and shortness of breath on exertion. She states she is not short of breath at rest, but would be SOB when walking short distance. She states she went to her PCP yesterday who gave her a nebulizer treatment in the office, did a chest xray and blood tests. She reports this helped, but that she later felt short of breath and was wheezing. She was then told today to come to the hospital to be admitted directly. She denies cough, fever, chills, nausea, vomiting, and states her appetite and bowel movements have been normal. She states she does not have any sick contacts, no recent travel, has not been admitted to the hospital recently, and lives at home with her . Of note, she denies SOB lying flat, leg swelling, and is a lifelong non-smoker. Past Medical/Surgical History Medical Problems: (1) H/O cataract removal with insertion of prosthetic lens Status: Chronic (2) Lupus Status: Chronic (3) Myocardial infarct Status: Resolved 4) Hypercholesterolemia 5) Hypothyroidism 6) MVP 7) PAF 8) Lupus Family History FH: colon cancer FH: glaucoma FH: prostate cancer FH: renal failure Social History Smoking Status: Never Smoker Marital Status: Occupational Status: employed Immunizations History of Tetanus Vaccine?: No History of Pneumococcal: DATE UNKNOWN History of Hepatitis B Vaccine: No Multi-Drug Resistant Organisms History of MDRO: No Allergies Coded Allergies: Terbinafine (Verified Allergy, Unknown, 03/23/15) Home Medications Scheduled Alendronate Sodium (Fosamax), 70 MG PO WK Atorvastatin (Lipitor), 20 MG PO DAILY Cholecalciferol (Vitamin D), 5,000 UNITS PO DAILY Ferrous Sulfate (Kp Ferrous Sulfate), 1 TAB PO DAILY Hydrochlorothiazide (Hctz), 12.5 MG PO DAILY Levofloxacin (Levofloxacin), 500 MG PO DAILY Levothyroxine Sodium (Levothyroxine Sodium), 88 MCG PO QAM Metoprolol Succinate (Toprol Xl), 25 MG PO DAILY Multivitamin (Multivitamin), 1 TAB PO DAILY Ocuvite Preservision (Ocuvite Preservision), 1 TAB PO BID Warfarin Sod (Jantoven), 5 MG PO 3XWK Warfarin Sod (Jantoven), 2.5 MG PO 4XWK Scheduled PRN Acetaminophen (Tylenol), 500 MG PO Q4 PRN for Headache or Pain Review of Systems Constitutional: No fever, No chills Respiratory: + wheezing, + dyspnea on exertion, No cough, No sputum, No shortness of breath, No dyspnea at rest Cardiovascular: No chest pain, No edema, No claudication, No palpitations Abdomen: No pain, No nausea, No vomiting, No diarrhea Physical Exam Vital Signs Date Time Temp Pulse Resp B/P (MAP) Pulse Ox O2 Delivery O2 Flow Rate FiO2 03/12/17 16:15 Room Air 03/12/17 14:48 37.0 64 20 136/71 (92) 97 Room Air 03/12/17 13:16 36.7 84 22 132/77 96 Room Air General Appearance: WD/WN, no apparent distress, + pertinent finding (audible wheezing) Respiratory/Chest: chest non-tender, no respiratory distress, no accessory muscle use, + decreased breath sounds, + wheezing Cardiovascular: regular rate, rhythm, no edema, no gallop, no JVD, no murmur, normal peripheral pulses Abdomen/GI: normal bowel sounds, non tender, soft, no organomegaly, no pulsatile mass Diagnostics Laboratory Results Results Past 24 Hours Test 03/12/17 13:44 03/12/17 14:16 Range/Units White Blood Count 10.68 4.8-10.8 K/uL Red Blood Count 3.65 4.2-5.4 M/uL Hemoglobin 10.8 12.0-16.0 g/dL Hematocrit 32.8 37-47 % Mean Corpuscular Volume 89.9 80-100 fL Mean Corpuscular Hemoglobin 29.6 25-34 pg Mean Corpuscular Hemoglobin Concent 32.9 32-36 g/dl Platelet Count 167 130-400 K/uL Mean Platelet Volume 10.0 7.4-10.4 fL Neutrophils (%) (Auto) 90.0 % Lymphocytes (%) (Auto) 3.0 % Monocytes (%) (Auto) 6.4 % Eosinophils (%) (Auto) 0.2 % Basophils (%) (Auto) 0.1 % Neutrophils # (Auto) 9.62 1.4-6.5 K/uL Lymphocytes # (Auto) 0.32 1.2-3.4 K/uL Monocytes # (Auto) 0.68 0.11-0.59 K/uL Eosinophils # (Auto) 0.02 0-0.5 K/uL Basophils # (Auto) 0.01 0-0.2 K/uL RDW Standard Deviation 44.7 36.4-46.3 fL RDW Coefficient of Variation 13.5 11.5-14.5 % Immature Granulocyte % (Auto) 0.3 % Immature Granulocyte # (Auto) 0.03 0.00-0.02 K/uL Prothrombin Time 22.9 9.0-12.0 SECONDS Prothromb Time International Ratio 2.2 0.9-1.1 Sodium Level 130 136-145 mmol/L Potassium Level 3.3 3.5-5.1 mmol/L Chloride Level 95 98-107 mmol/L Carbon Dioxide Level 29 21-32 mmol/L Anion Gap 6.0 3-11 mmol/L Blood Urea Nitrogen 36 7-18 mg/dl Creatinine 1.77 0.60-1.20 mg/dl Est Creatinine Clear Calc Drug Dose 19.8 ml/min Estimated GFR () 29.2 Estimated GFR (Non- 25.2 BUN/Creatinine Ratio 20.3 10-20 Random Glucose 168 70-99 mg/dl Calcium Level 8.1 8.5-10.1 mg/dl Total Bilirubin 0.6 0.2-1 mg/dl Aspartate Amino Transf (AST/SGOT) 20 15-37 U/L Alanine Aminotransferase (ALT/SGPT) 26 12-78 U/L Alkaline Phosphatase 119 45-117 U/L Pro-B-Type Natriuretic Peptide 8764 0-1800 pg/ml Total Protein 6.7 6.4-8.2 gm/dl Albumin 3.0 3.4-5.0 gm/dl Globulin 3.7 2.5-4.0 gm/dl Albumin/Globulin Ratio 0.8 0.9-2 Microbiology Results 03/12/17 Blood Culture, Received Pending 03/12/17 Blood Culture, Received Pending Diagnostic Radiology CHEST ONE VIEW PORTABLE CLINICAL HISTORY: ? pneumonia pneumonitis COMPARISON STUDY: 03/11/2017 FINDINGS: Potential developing parenchymal infiltrate left base. Lungs otherwise appear clear. Findings of mild stable cardiomegaly. Right hilar fullness diminished possibly secondary to rotational factors on the initial film. Permanent bipolar cardiac pacemaker. IMPRESSION: Potential developing parenchymal infiltrate left base. Improved right hilar prominence. Impression Assessment and Plan Ms. Oviedo is a pleasant 86 year old woman with a past medical history of pacemaker placement (on warfarin) CAD s/p ACS in 2004 with placement of a stent , PAF, hypercholesterolemia, hypothyroidism, lupus who presented to [facility] with a 4 day history of wheezing and shortness of breath on exertion. Shortness of breath with wheezing - ?CAP - cxr showed potential developing infiltrate in left base - cover with Levaquin 500 q48h given renal function - duonebs qid - afebrile and normal WBC - 10.68 - pt reports wheezing after drinking a glass of orange juice - will order SLT to rule out aspiration - ECHO - EF = 50 - 55%, mild MR, left ventricular systolic function normal, no regional wall motion abnormalities Hypokalemia - K 3.3 - 20mEq of potassium chloride ordered - recheck in AM Hyperlipidemia - continue atorvastatin CAD - continue toprol, hydrochlorothiazide PAF/Pacemaker - continue coumadin 5mg MWF, 2.5mg other days Hypothyroidism - continue levothyroxine Osteoporosis - continue Vitamin D3 - Continue alendronate weekly Anemia - continue oral iron - Hgb 10.8 Code: Level 3 DVT Prophylaxis: on warfarin Disposition: pending Advanced Directives Existing Living Will: Yes 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 Y/N: Yes Risk Level: Moderate Given or contraindicated: Warfarin (Coumadin) Resident Tracking Resident Involvement: Resident Care Provided Care Provided: Adult Hospital Medicine Reviewed: Pt Seen/Exam by Me History directly admitted on floor for wheezing and some shortness of breath Constitutional: denies: fever Respiratory: positive: short of breath Cardiovascular: denies chest pain General Appearance: no apparent distress Respiratory: no respiratory distress, other (upper airway conducted sounds) Cardiovascular: regular rate, rhythm Gastrointestinal: soft Neurologic/Psychiatric: alert, oriented x 3 Skin Characteristics: warm/dry Assessment/Plan Resident Physician Supervision Note: I independently interviewed and examined the patient and verified the pak history and physical, reviewed labs and image studies, discussed the case with the resident Dr. Zaidi and agree with the findings and care plan.
[2017-03-12] MEDS ORDERED: POTASSIUM CHLORIDE 20 MEQ TABCR PO ONE (18:30)
[2017-03-12 19:39] VITALS: BP 132/69; PULSE 86; TEMP 37.2; O2SAT 97
[2017-03-12 19:47] VITALS: PULSE 88; O2SAT 92
[2017-03-12] MEDS: CEROVITE ADV FORMULA TAB PO SCH (20:51)
[2017-03-12 22:56] VITALS: BP 133/72; PULSE 82; TEMP 37.2; O2SAT 94
[2017-03-13 05:03] VITALS: BP 147/66; TEMP 36.9; O2SAT 95
[2017-03-13 06:30] LABS: HEMATOCRIT 33.5 % (37-47); MEAN CELL VOLUME 87.9 fL (80-100); MEAN CORPUSCULAR HEMOGLOBIN 29.1 pg (25-34); MEAN CORPUSCULAR HGB CONC 33.1 g/dl (32-36); MEAN PLATELET VOLUME 9.4 fL (7.4-10.4); PLATELET COUNT 165 K/uL (130-400); RED BLOOD COUNT 3.81 M/uL (4.2-5.4); WHITE BLOOD COUNT 9.29 K/uL (4.8-10.8)
[2017-03-13] MEDS ORDERED: LEVOTHYROXINE 88 MCG TAB PO SCH (06:30)
[2017-03-13 06:52] LABS: INR 2.3 (0.9-1.1); PROTHROMBIN TIME (PATIENT) 23.4 SECONDS (9.0-12.0)
[2017-03-13 06:54] VITALS: PULSE 76; O2SAT 94
[2017-03-13] MEDS: ALBUT/IPRATROP 3MG/0.5MG NEB 3 ML VIAL INH SCH ×2 (06:54→11:33)
[2017-03-13 07:10] VITALS: BP 164/96; PULSE 81; TEMP 36.8; O2SAT 98
[2017-03-13 07:11] LABS: BUN/CREATININE RATIO 18.7 (10-20); CALCIUM 8.3 mg/dl (8.5-10.1); CREATININE 1.65 mg/dl (0.60-1.20)
[2017-03-13] MEDS: CEROVITE ADV FORMULA TAB PO SCH (08:15)
[2017-03-13] MEDS ORDERED: HYDROCHLOROTHIAZIDE 25 MG TAB PO SCH (09:00)
[2017-03-13] MEDS ORDERED: METOPROLOL SUCC 25MG EXT REL TAB PO SCH (09:00)
[2017-03-13] MEDS ORDERED: CHOLECALCIFEROL 1000 INTER.UNIT TAB PO SCH (09:00)
[2017-03-13] MEDS ORDERED: MULTIVITAMIN TAB PO SCH (09:00)
[2017-03-13] MEDS ORDERED: ATORVASTATIN 20 MG TAB PO SCH (09:00)
[2017-03-13] MEDS ORDERED: FERROUS SULFATE 325 MG TAB PO SCH (09:00)
[2017-03-13] MEDS ORDERED: LVQ500 PO ×2 (09:30→13:54)
--- NOTE | 2017-03-13 09:32 | Discharge Instructions ---
Discharge Instructions Date of Service Mar 13, 2017. Admission Reason for Admission: Pneumonia Discharge Discharge Diagnosis / Problem: pneumonia Discharge Goals Goal(s): Decrease discomfort, Diagnostic testing, Therapeutic intervention Activity Recommendations Activity Limitations: resume your previous activity . Instructions / Follow-Up Instructions / Follow-Up Ms. Humphrey you were admitted because you were having wheezing and shortness of breath with exertion. We treated you with an antibiotic (Levaquin) because your chest x-ray was a little concerning for possible pneumonia. -Please continue antibiotic - Levaquin 500mg once a day for another 7 days -Please follow up with your primary care or family doctor in a week for blood work to check your kidney function -Please eat a low salt diet (limit sodium to 2000mg or 2g) -Please continue your home medications prior to hospitalization Current Hospital Diet Patient's current hospital diet: AHA Diet (Heart Healthy) Discharge Diet Recommended Diet: Low Sodium Diet (2gm Na) Pending Studies Studies pending at discharge: no Medical Emergencies . Who to Call and When: Medical Emergencies: If at any time you feel your situation is an emergency, please call 911 immediately. . Non-Emergent Contact Non-Emergency issues call your: Primary Care Provider . . "Provider Documentation" section prepared by Jhony Abraham. . VTE Core Measure Inpt VTE Proph given/why not?: Warfarin (Coumadin)
[2017-03-13] MEDS ORDERED: LEVOFLOXACIN 750 MG TAB PO SCH (11:00)
[2017-03-13 11:04] VITALS: BP 164/96; TEMP 36.8; O2SAT 98
[2017-03-13 11:33] VITALS: PULSE 71; O2SAT 94
--- NOTE | 2017-03-13 12:49 | Discharge Summary ---
Discharge Summary Date of Service Mar 13, 2017. Discharge Summary Admission Date: Mar 12, 2017 at 12:38 Discharge Date: Mar 13, 2017 Principal Diagnosis: community acquired pneumonia Problems/Secondary Diagnoses: Hyperlipidemia CAD PAF (pacemaker) Hypothyroidism Osteoporosis Anemia Immunizations: History of Tetanus Vaccine?: No History of Pneumococcal: DATE UNKNOWN History of Hepatitis B Vaccine: No Procedures: ECHO: * Left ventricular systolic function is normal. * No regional wall motion abnormalities noted. * Ejection Fraction = 50-55%. * Grade I diastolic dysfunction, (abnormal relaxation pattern). * There is mild mitral regurgitation. * There is mild to moderate tricuspid regurgitation Medication Reconciliation New Medications: Levofloxacin (Levofloxacin) 500 Mg Tab 500 MG PO DAILY for 7 Days, #7 TAB Continued Medications: Acetaminophen (Tylenol) 500 Mg Tab 500 MG PO Q4 PRN for Headache or Pain, TAB Alendronate Sodium (Fosamax) Unknown Strength Tab 70 MG PO WK, TAB On Wednesdays Atorvastatin (Lipitor) 20 Mg Tab 20 MG PO DAILY, TAB Cholecalciferol (Vitamin D) 400 Unit Tab 5000 UNITS PO DAILY Ferrous Sulfate (Kp Ferrous Sulfate) 325 Mg Tab 1 TAB PO DAILY for 30 Days, #30 TAB 3 Refills Hydrochlorothiazide (Hctz) 12.5 Mg Cap 12.5 MG PO DAILY, TAB Levothyroxine Sodium (Levothyroxine Sodium) 88 Mcg Tab 88 MCG PO QAM for 30 Days, #30 TAB 5 Refills Metoprolol Succinate (Toprol Xl) 25 Mg Tabcr 25 MG PO DAILY, #30 TAB Multivitamin (Multivitamin) Tab 1 TAB PO DAILY, TAB Ocuvite Preservision (Ocuvite Preservision) 1 Tab Tab 1 TAB PO BID, TAB Warfarin Sod (Jantoven) 5 Mg Tab 5 MG PO 3XWK, TAB m/w/f Warfarin Sod (Jantoven) 2.5 Mg Tab 2.5 MG PO 4XWK, TAB Discharge Exam This AM Ms. Castle reported improved shortness of breath with exertion and resolution of wheezing Review of Systems: Constitutional: No fever, No chills Respiratory: + shortness of breath (on exertion), No wheezing Cardiovascular: No chest pain Abdomen: No pain, No nausea, No vomiting Genitourinary - Female: No dysuria Physical Exam: General Appearance: no apparent distress Eyes: normal inspection Neck: supple Respiratory/Chest: lungs clear, + decreased breath sounds Cardiovascular: regular rate, rhythm, no edema Abdomen / GI: normal bowel sounds, non tender, soft Neurologic/Psychiatric: alert Hospital Course Ms. Oviedo is a pleasant 86 year old woman with past medical history of PAF with pacemaker placement (on warfarin), CAD s/p ACS in 2004 with stent placement , hypercholesterolemia, hypothyroidism, and lupus who presented to [facility] with a 4 day history of wheezing and shortness of breath on exertion. Shortness of breath with wheezing - Likely due to CAP - afebrile with normal WBC - 10.68 - cxr showed potential developing infiltrate in left base - Started on Levaquin 500 q48h given renal function - Dced with Levaquin 500mg daily x 7 days - duonebs qid - Noted elevated BNP in 8000 but no overt sign of failure and improvement in symptoms with duonebs and IV antibiotics. - ECHO - EF = 50 - 55%, mild MR, left ventricular systolic function normal, no regional wall motion abnormalities GENE on possible CKD - creatinine improving on discharge - 1.77--> 1.65 Follow as outpatient. Hypokalemia - resolved - 20mEq of potassium chloride ordered - K 4 on discharge (03/13) Hyperlipidemia - Continued atorvastatin CAD - Continued Toprol, Hydrochlorothiazide - Recommended low salt diet (sodium limit of 2g) PAF/Pacemaker - Continued Coumadin 5mg MWF, 2.5mg other days Hypothyroidism - Continued levothyroxine Osteoporosis - Continued Vitamin D3 - Continued alendronate weekly Anemia - Continued oral iron - Hgb 10.8 Total Time Spent: Less than 30 minutes This includes examination of the patient, discharge planning, medication reconciliation, and communication with other providers. Discharge Instructions Please refer to the electronic Patient Visit Report (Discharge Instructions) for additional information. Follow-Up Follow up within a week with PCP Additional Copies To Derick Cervantes M.D. Reviewed: Pt Seen/Exam by Me History no further wheezing or shortness of breath Constitutional: denies: fever Respiratory: negative: short of breath Cardiovascular: denies chest pain General Appearance: no apparent distress Respiratory: lungs clear, no respiratory distress Cardiovascular: regular rate, rhythm Gastrointestinal: soft Neurologic/Psychiatric: alert, oriented x 3 Skin Characteristics: warm/dry Assessment/Plan Resident Physician Supervision Note: I independently interviewed and examined the patient and verified the pak history and physical, reviewed labs and image studies, discussed the case with the resident Dr. Abraham and agree with the findings and care plan.
[2017-03-13] MEDS ORDERED: WARFARIN SOD 2.5 MG TAB PO SCH (16:00)
[2017-03-14] MEDS ORDERED: LEVOFLOXACIN 500 MG TAB PO SCH (11:00)
[2017-03-17] MEDS ORDERED: ALENDRONATE SODIUM 70 MG TAB PO SCH (07:00)
== END 2017-03-13 13:15 | disposition home or self-care (01) ==
LOC: INTOOBSV 12:38 → C.MED 12:38
PROVIDERS: ADMIT Internal Medicine; ATTEND Family Medicine
DX: J18.9 Pneumonia, unspecified organism (principal); Z95.0 Presence of cardiac pacemaker; I25.10 Atherosclerotic heart disease of native coronary artery without angina pectoris; E78.00 Pure hypercholesterolemia, unspecified; E03.9 Hypothyroidism, unspecified; M32.9 Systemic lupus erythematosus, unspecified; Z79.01 Long term (current) use of anticoagulants; Z79.899 Other long term (current) drug therapy; Z80.0 Family history of malignant neoplasm of digestive organs; Z83.511 Family history of glaucoma

== ENCOUNTER → 2017-05-11 | Outpatient (CLI) | payer BC ==
[~2017-05-11] MED LIST changes: -ALEN5TAB2 PO; +DENO60SO SQ; +LVQ500 PO; -METO25TA3 PO; +METO25TA4 PO
--- NOTE | 2017-05-11 10:19 | DIAGNOSTIC IMAGING REPORT ---
L ANKLE MIN 3 VIEWS ROUTINE CLINICAL HISTORY: Left ankle pain following fall one week ago. COMPARISON: None FINDINGS: Note is made of an acute minimally displaced distal left fibular fracture which is located just superior to the level of the tibiotalar articulation. There is no ankle mortise widening. Moderate ankle soft tissue swelling is noted. Soft tissue calcifications are no clinical significance. IMPRESSION: 1. Acute minimally displaced distal left fibular fracture. No ankle mortise widening. 2. Moderate ankle soft tissue swelling. Electronically signed by: Luke Turner M.D. 05/11/2017 10:17 AM Dictated Date/Time: 05/11/2017 10:16 AM
== END | disposition home or self-care (01) ==
LOC: C.RAD1850 09:59
PROVIDERS: ATTEND Family Medicine Hospice and Palliative Medicine
DX: S82.832A Other fracture of upper and lower end of left fibula, initial encounter for closed fracture (principal); W19.XXXA Unspecified fall, initial encounter

== ENCOUNTER → 2017-05-20 | Outpatient (CLI) | payer BC ==
--- NOTE | 2017-05-20 11:12 | DIAGNOSTIC IMAGING REPORT ---
CHEST 2 VIEWS ROUTINE CLINICAL HISTORY: J44.1 dyspnea. Cough. COMPARISON STUDY: 03/12/2017 FINDINGS: Mild stable cardiomegaly. 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 Lungs are considered clear. Mild emphysematous change. IMPRESSION: Mild stable cardiomegaly. Mild emphysematous change. No acute process. The above report was generated using voice recognition software. It may contain grammatical, syntax or spelling errors. Electronically signed by: Sheldon Simons M.D. 05/20/2017 11:11 AM Dictated Date/Time: 05/20/2017 11:10 AM
== END | disposition home or self-care (01) ==
LOC: C.RAD1850 10:52
PROVIDERS: ATTEND Family Medicine
DX: J44.1 Chronic obstructive pulmonary disease with (acute) exacerbation (principal)

== ENCOUNTER → 2017-06-01 | Outpatient (CLI) | payer BC ==
--- NOTE | 2017-06-01 10:25 | DIAGNOSTIC IMAGING REPORT ---
L ANKLE MIN 3 VIEWS HISTORY: 87 years-old Female LEFT ANKLE PAIN acute left-sided ankle pain COMPARISON: Left ankle radiographs 05/11/2017 TECHNIQUE: 3 views of the left ankle FINDINGS: There is minimal healing associated with a subacute minimally displaced fracture of the distal left fibula which is obliquely oriented and extends to the level of the ankle mortise. Mild soft tissue swelling about the ankle, decreased from prior. The bones appear mildly demineralized. No additional acute or subacute fracture identified. Soft tissue calcifications about the lower leg redemonstrated. Mild midfoot degenerative changes. IMPRESSION: 1. Minimal healing associated with the subacute minimally displaced fracture of the distal fibula. 2. Decreased mild soft tissue swelling about the ankle. The above report was generated using voice recognition software. It may contain grammatical, syntax or spelling errors. Electronically signed by: Timothy Parekh M.D. 06/01/2017 10:24 AM Dictated Date/Time: 06/01/2017 10:22 AM
== END | disposition home or self-care (01) ==
LOC: C.RDSM 14:57
PROVIDERS: ATTEND Family Medicine
DX: M25.572 Pain in left ankle and joints of left foot (principal); S82.832A Other fracture of upper and lower end of left fibula, initial encounter for closed fracture; X58.XXXA Exposure to other specified factors, initial encounter

== ENCOUNTER → 2017-07-20 | Outpatient (CLI) | payer BC ==
--- NOTE | 2017-07-20 10:10 | DIAGNOSTIC IMAGING REPORT ---
L ANKLE MIN 3 VIEWS CLINICAL HISTORY: Left ankle pain. Healing fracture. COMPARISON: Left ankle radiographs May 11, 2017 and June 01, 2017. FINDINGS: Alignment of the minimally displaced distal left fibular fracture is unchanged since previous exam. Partial interval healing is noted with callus formation. No ankle mortise widening is noted. There is no distal left tibial fracture. Multiple soft tissue calcifications are chronic. Talar dome remains intact. IMPRESSION: Partial interval healing of the mildly displaced distal left fibular fracture since prior exam. No change in alignment. Electronically signed by: Luke Turner M.D. 07/20/2017 10:08 AM Dictated Date/Time: 07/20/2017 10:07 AM
== END | disposition home or self-care (01) ==
LOC: C.RDSM 10:00
PROVIDERS: ATTEND Family Medicine
DX: M25.572 Pain in left ankle and joints of left foot (principal); S82.402D Unspecified fracture of shaft of left fibula, subsequent encounter for closed fracture with routine healing; X58.XXXD Exposure to other specified factors, subsequent encounter; Z88.6 Allergy status to analgesic agent; Z88.8 Allergy status to other drugs, medicaments and biological substances

== ENCOUNTER → 2017-11-15 | Outpatient (CLI) | payer BC ==
[2017-11-15 12:30] LABS: BASO % 0.6 %; BASO ABS # 0.04 K/uL (0-0.2); EOS % 3.3 %; EOS ABS # 0.22 K/uL (0-0.5); HEMOGLOBIN 11.9 g/dL (12.0-16.0); IG# 0.01 K/uL (0.00-0.02); LYMPH % 15.7 %; LYMPH ABS # 1.05 K/uL (1.2-3.4); MEAN CELL VOLUME 88.7 fL (80-100); MEAN CORPUSCULAR HEMOGLOBIN 29.3 pg (25-34); MEAN CORPUSCULAR HGB CONC 33.1 g/dl (32-36); MEAN PLATELET VOLUME 9.8 fL (7.4-10.4); MONO % 12.3 %; MONO ABS # 0.82 K/uL (0.11-0.59); NEUT ABS # 4.54 K/uL (1.4-6.5); PLATELET COUNT 214 K/uL (130-400); RED CELL DISTRIBUTION WIDTH CV 12.8 % (11.5-14.5); RED CELL DISTRIBUTION WIDTH SD 41.2 fL (36.4-46.3); WHITE BLOOD COUNT 6.68 K/uL (4.8-10.8)
[2017-11-15 12:43] LABS: ALBUMIN 3.8 gm/dl (3.4-5.0); ALKALINE PHOSPHATASE 82 U/L (45-117); ALT/SGPT 27 U/L (12-78); AST/SGOT 28 U/L (15-37); CREATININE 1.58 mg/dl (0.60-1.20); TOTAL PROTEIN 7.2 gm/dl (6.4-8.2)
== END | disposition home or self-care (01) ==
LOC: C.LAB1850 11:11
PROVIDERS: ATTEND Internal Medicine Rheumatology
DX: M06.9 Rheumatoid arthritis, unspecified (principal); Z79.899 Other long term (current) drug therapy; M35.1 Other overlap syndromes; M80.00XA Age-related osteoporosis with current pathological fracture, unspecified site, initial encounter for fracture; X58.XXXA Exposure to other specified factors, initial encounter